=== PATIENT | female | born 1990 | race Caucasian/White ===

== ENCOUNTER 2018-08-18 10:25 | Emergency (ER) | payer OTHER ==
[2018-08-18] MEDS ORDERED: ONDANSETRON 4 MG/2 ML VIAL IVPUSH ONE (10:27)
[2018-08-18] MEDS ORDERED: FAMOTIDINE 20 MG/50 ML IVPB 20 MG/50 ML MG IVPB ONE ×2 (10:27→11:04)
[2018-08-18] MEDS ORDERED: SODIUM CHLORIDE 1,000 ML IV STA (10:27)
--- NOTE | 2018-08-18 10:28 | PDOC ---
History of Present Illness - General Chief Complaint: Nausea/Vomiting Stated Complaint: VOMITING Time Seen by Provider: 08/18/18 10:27 History Source: Patient Exam Limitations: No Limitations - History of Present Illness Initial Comments: 08/18/18 10:50 28 YOF with no medical history presenting with AP, n/v/d since 1 am. Beginning last night, she started to experience diffuse abdominal cramping, nausea and NBNB emesis x multiple episodes and watery brown nonbloody diarrhea x 2 episodes. Took zofran from sister, but did not help/vomited. +subjective chills , sweats and flushing, headache and dizziness. No cough or congestion. No urinary sx. Denies , on IUD. admits to eating frozen pizza with significant other last night, as suspicious food intake No travel. +sick contact (significant other with similar gastroenteritis sx seen in the ED last night) no recent antibiotic use or medications. Allergies: None Past Medical History: none Social history: Lives with family. No tobacco, ETOH or drug use. Surgical history: None ROS Constitutional: no fevers. +sweats, +chills HEENT: +headache or dizziness. No congestion. No visual/hearing disturbances. CVS: no cp or syncope. Resp: no sob. No cough. Gastrointestinal: +abdominal pain, nausea, vomiting, diarrhea. Genitourinary: no urinary sx, hematuria. MUSCULOSKELETAL: No joint pain and swelling. No neck or back pain. SKIN: no redness or skin changes, no discharge, no rash. No wounds. Hematologic: no easy bruising/bleeding. NEUROLOGIC: No headache, dizziness, LOC or altered mental status. No weakness, numbness or tingling. Allergic/Immunologic: no allergies All other systems reviewed and negative, or as documented in HPI. PE: General: Well appearing, awake and alert, NAD. HEENT: NCAT, PERRL, EOMI, clear conjunctiva, anicteric, dry mucus membranes, clear oropharynx, no oral lesions.. Neck: neck supple, FROM Resp: CTAB, normal and even respirations, no respiratory distress CVS: +tachycardic, no murmurs, 2+ peripheral pulses throughout, no peripheral edema Abdomen: soft, diffuse Tenderness; no rebound or guarding. No CVAT. Back: nontender, normal inspection and ROM MSK: no edema, ANDERS x4, ROM intact. No clubbing or cyanosis. normal bulk and tone. Neuro: alert and alert. Skin: warm and well perfused, cap refill <2 sec, normal color 08/18/18 11:12 08/18/18 12:37 Past History - Past Medical History Allergies/Adverse Reactions: Allergies Allergy/AdvReac Type Severity Reaction Status Date / Time No Known Allergies Allergy Verified 08/18/18 10:26 Home Medications: Ambulatory Orders Ondansetron [Zofran -] 4 mg PO PRN PRN 08/18/18 Ondansetron [Zofran Odt -] 4 mg SL TID PRN #9 od.tablet 08/18/18 ED Treatment Course - LABORATORY CBC & Chemistry Diagram: 08/18/18 11:02 08/18/18 11:02 Medical Decision Making - Medical Decision Making 08/18/18 10:50 hpi as documented VS wnl, no fever, +mildly elevated HR 90-100s; otherwise nontoxic appearing. DDx abdominal pain: Renal colic, biliary colic, metabolic/electrolyte derangements. GERD, PUD, esophageal spasm, pancreatitis, hepatitis, constipation , colitis, gastroenteritis, food poisoning, hernia, doubt pelvic pathology, appendicitis, diverticulitis, as no lower abdominal or focal symptoms. given pepcid, tylenol, IVF, zofran, with clinical improvement. abdomen soft and benign, non peritoneal to suggest intra abdominal pathology. very minimal epigastric cramps. no RLQ or LLQ tenderness. labs and lytes_with +leukocytosis 15K, neut shift; otherwise unremarkable. normal Lipase and LFTs. neg preg test shared decision making with pt, with capacity. most likely gastroenteritis with reactive leukocytosis. no lower quad pain at this time to suggest appy, but close observation over the next 24-48 hours: if RLQ/LLQ pain, fever, vomiting and worsening clinical condition, should return and consider imaging to r/o appy or other intra abdominal source if sx unremitting. pt verbalized understanding of instructions and return precautions. she elects for discharge and close observation. dispo: Pt informed of my clinical impression, treatment recommendations and disposition plan. All questions answered to patient's satisfaction and expressed understanding and comfort with this. Reasons for returning to the ED sooner discussed with the patient otherwise, follow up with primary care physician. At the time of discharge, the patient is alert, clinically improved, tolerating po and verbalizes understanding of instructions. Patient does not suffer from an acute life-threatening medical condition at this time she is safe for outpatient follow-up. 08/18/18 12:17 *DC/Admit/Observation/Transfer Diagnosis at time of Disposition: Nausea vomiting and diarrhea - Discharge Dispostion Disposition: HOME Condition at time of disposition: Improved Decision to Admit order: No - Prescriptions Prescriptions: Ondansetron [Zofran Odt -] 4 mg SL TID PRN #9 od.tablet PRN Reason: Nausea And/Or Vomiting - Referrals - Patient Instructions Printed Discharge Instructions: Diarrhea, Titus Diet, DI for Nausea -- Adult, DI for Vomiting -- Adult Additional Instructions: Your laboratory results were normal, including your blood counts and electrolytes. your white blood cell count was elevated with neutrophilic predominance, which can happen with infection or/and inflammation. Follow up with your physician and consultants as instructed, take your medications as instructed including zofran three times a day as needed for nausea/vomiting, with the tablet under the tongue to be dissolved. you most likely have gastroenteritis, whether from infection or food exposure. stay well hydrated, rest and use the bland diet until you feel ready to eat normal foods. However, if you develop right or left lower quadrant pain, high fever, worsening pain/vomiting or clinical symptoms, especially over the next 24-48 hours, this could suggest intra abdominal process such as acute appendicitis that would warrant further evaluation. if those symptoms develop/lower quadrant pain, return sooner for reevaluation. Return if worsening symptoms including fevers, headache, vomiting, visual or hearing disturbances, abdominal pain, chest pain, shortness of breath, syncope, dehydration, inability to take things by mouth/vomiting, altered mental status, or worsening concerning symptoms. your medications on discharge include_ side effects may include upset stomach, abdominal pain, vomiting, or diarrhea. do not drink alcohol with your medications. - Post Discharge Activity Forms/Work/School Notes: Back to Work
[2018-08-18 10:31] VITALS: BP 136/81; PULSE 94; TEMP 99; BMI 26.4
[2018-08-18] MEDS ORDERED: ONDANSETRON 4 MG/2 ML VIAL ONE (10:43)
[2018-08-18] MEDS ORDERED: ACETAMINOPHEN 1000 MG/100 ML VIAL (NON FORMULARY) IVPB ONE (10:46)
[2018-08-18] MEDS ORDERED: ACETAMINOPHEN INJECTION 100 ML IVPB ONE (11:03)
[2018-08-18 11:14] LABS: HEMATOCRIT 43.3 % (32.4-45.2); HEMOGLOBIN 14.2 GM/dl (10.7-15.3); MCH 30.4 pg (25.7-33.7); MCHC 32.8 g/dl (32.0-36.0); MEAN CELL VOLUME 92.7 fl (80-96); MEAN PLT VOLUME 8.8 fl (7.5-11.1); PLATELET COUNT 369 K/MM3 (134-434); RBC 4.68 M/mm3 (3.60-5.2); WHITE BLOOD COUNT 15.2 K/mm3 (4.0-10.8)
[2018-08-18 11:23] LABS: ALBUMIN 4.5 g/dl (3.5-5.0); ALK PHOS 83 U/L (32-92); ANION GAP 12 MMOL/L (8-16); BILIRUBIN,TOTAL 0.8 mg/dl (0.2-1.0); BLOOD UREA NITROGEN 15 mg/dl (7-18); CALCIUM 9.3 mg/dl (8.4-10.2); CHLORIDE 105 mmol/L (98-107); CO2 20 mmol/L (22-28); CREATININE 0.7 mg/dl (0.6-1.3); GLUCOSE,RANDOM 113 mg/dl (74-106); POTASSIUM 3.6 mmol/L (3.5-5.1); SGOT/AST 29 U/L (10-42); SGPT/ALT 24 U/L (10-40); SODIUM 137 mmol/L (136-145); TOT PROT 8.3 g/dl (6.4-8.3)
[2018-08-18 12:11] LABS: PLATELET ESTIMATE ADEQUATE
[2018-08-18 12:19] LABS: LIPASE 116 U/L (73-393)
== END 2018-08-18 12:51 | disposition home or self-care (01) ==
LOC: FER 10:25
PROC: 3E033NZ Introduction of Analgesics, Hypnotics, Sedatives into Peripheral Vein, Percutaneous Approach (ICD-10-PCS; principal; 2018-08-18)
PROC: 3E033GC Introduction of Other Therapeutic Substance into Peripheral Vein, Percutaneous Approach (ICD-10-PCS; 2018-08-18)
PROC: 3E0337Z Introduction of Electrolytic and Water Balance Substance into Peripheral Vein, Percutaneous Approach (ICD-10-PCS; 2018-08-18)
DX: R11.2 Nausea with vomiting, unspecified (principal); R19.7 Diarrhea, unspecified
CPT/HCPCS: 36415; 80053; 83690; 84703; 85025; 99283-25; J0131; J7030